=== PATIENT | male | born 1990 | race Caucasian/White ===

== ENCOUNTER 2019-08-26 10:54 | Emergency (ER) | payer BC, SELFPAY ==
[2019-08-26 11:00] VITALS: BP 121/69; PULSE 66; RESP 17; TEMP 36.7; O2SAT 98
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
--- NOTE | 2019-08-26 12:10 | DI.RAD.S_ITS ---
PROCEDURE: XR SHOULDER LT MIN 2V INDICATIONS: shoulder pain at AC TECHNIQUE: 3 views of the shoulder were acquired. COMPARISON: None. FINDINGS: Bones: No fractures or dislocations. Inferior subluxation of the acromion in relation to the distal clavicle is seen with up to 8mm depression. No suspicious bony lesions. Visualized ribs appear intact. Soft tissues: No suspicious soft tissue calcifications. IMPRESSION: Finding is suggestive of moderate to high-grade acromioclavicular separation. No acute fracture is seen. No gross dislocation. Dictated by: Bert Hope M.D. on 08/26/2019 at 12:45 Approved by: Bert Hope M.D. on 08/26/2019 at 12:46
[2019-08-26 12:45] VITALS: BP 122/85; PULSE 68; O2SAT 100
== END 2019-08-26 12:46 | disposition home or self-care (01) ==
PROVIDERS: Emergency Provider Emergency Medicine; PCP Family Medicine
DX: S43.005A Unspecified dislocation of left shoulder joint, initial encounter (principal); V29.9XXA Motorcycle rider (driver) (passenger) injured in unspecified traffic accident, initial encounter
CPT/HCPCS: 73030; 99281; 99283